=== PATIENT | male | born 1995 | race Caucasian/White ===

== ENCOUNTER 2023-09-22 18:25 | Emergency (ER) | payer OTHER ==
[2023-09-22 18:39] VITALS: BP 131/77; PULSE 85; RESP 17; TEMP 97.6; BMI 31.6
== END 2023-09-22 20:20 | disposition home or self-care (01) ==
LOC: JERFT 18:25
PROC: 0HCMXZZ Extirpation of Matter from Right Foot Skin, External Approach (ICD-10-PCS; principal; 2023-09-22)
DX: S90.851A Superficial foreign body, right foot, initial encounter (principal); W45.8XXA Other foreign body or object entering through skin, initial encounter
CPT/HCPCS: 73630-TC-RT-FY; 99283-25